=== PATIENT | female | born 1980 | race Caucasian/White ===

== ENCOUNTER 2018-06-06 07:13 | Inpatient (IN) | payer OTHER ==
[2018-06-06] VITALS (25 sets, daily range): BP systolic 97–132; BP diastolic 55–68
[~2018-06-06] VITALS: Ht 162.6 cm; Wt 74.4 kg
[~2018-06-06 07:13] MED LIST: ESC10 PO; FAMO20TA28 PO; FLUT16SP19 ENA; FLUT16SP19 NS; HUMALOG SUBQ; HUMNI SC; INSU100C12 SUBQ; INSU100V24 SUBQ; INSU100V26 SC; LANI SUBQ; LOR1; OMEP-125 PO; PANT40TA65 PO; PARO10OR3 PO; PER PO; PREN-85 PO; VENL-248 PO
--- NOTE | 2018-06-06 07:16 | ER Report ---
History and Physical Time Seen By MD: 07:17 HPI/ROS CHIEF COMPLAINT: Elevated blood sugar HISTORY OF PRESENT ILLNESS: Patient is a 37-year-old female who is an insulin- dependent diabetic. She is normally well controlled on insulin at home. She states yesterday she began feeling ill REVIEW OF SYSTEMS: Constitutional: Fevers and chills yesterday Eyes: No discharge. ENT: No sore throat. Cardiovascular: No chest pain, no palpitations. Respiratory: No cough, no shortness of breath. Gastrointestinal: No abdominal pain, no vomiting. Genitourinary: No hematuria. Musculoskeletal: No back pain. Skin: No rashes. Neurological: No headache. Allergies: Coded Allergies: penicillin G (Verified Allergy, Severe, HIVES, 04/16/16) Home Meds Reported Medications Insulin Human Lispro (Humalog) 100 U/Ml Vial, 2-10 UNIT SUBQ PRN PRN For GLU 150-200 Give 2 units For GLU 201-250 Give 4 units For GLU 251-300 Give 6 units For GLU 301-350 Give 8 units For GLU over 350 Give 10 units If GLU Under 50, td LANDON. May give juice if awake. If GLU over 400, give SS dose and td LANDON. If blood sugar is less than 50: td LANDON. May give juice if awake. If blood sugar greater than 400: give sliding scale dose and td LANDON. 08/23/11 Insulin Glargine (Lantus) 100 U/Ml Vial, UNIT SUBQ HS 08/23/11 Discontinued Reported Medications Famotidine (PEPCID) 20 Mg Tablet, 20 MG PO QDAY, #10 TAB 09/19/15 Omeprazole (OMEPRAZOLE) 20 Mg Capsule.dr, 1 CAP PO QDAY, CAP 08/06/15 Discontinued Scripts Pantoprazole Sodium (PANTOPRAZOLE SODIUM) 40 Mg Tablet.dr, 40 MG PO QDAY, #30 TAB.SR 1 Refill Prov:NICO TANNER MD 08/07/15 Past Medical/Surgical History Insulin-dependent diabetes, gastroesophageal reflux disease. Hx Smoking: Yes (1 PPD X 20 YEARS) Smoking Status: Current: Every Day Smoker Exposure to Second Hand Smoke?: Yes Hx Substance Use Disorder: Yes Hx Alcohol Use: Yes Constitutional Vital Sign - Last 24 Hours 06/06/18 07:13 Temp 97.5 Pulse 119 Resp 18 B/P (MAP) 155/83 Pulse Ox 95 O2 Delivery Room Air Physical Exam General/Constitutional: Patient is awake, alert, ill-appearing with deep respirations Head: Normocephalic and atraumatic. Eyes: Conjunctival clear, Pupils are equal and reactive to light. Extraocular muscles are intact and symmetrical. Sclera are clear and anicteric. Ears:External canals are clear. Tympanic membranes are clear with normal landmarks and light reflex. Nares: No rhinorrhea or bleeding. Turbinates are pink and moist. Oropharyngeal: Mucous membranes are dry. There is no pharyngeal erythema or exudate. There are no palatal petechiae. Uvula is midline and symmetrical. Neck: Supple, no adenopathy. Cardiovascular: Heart is tachycardic with regular rate without audible murmurs, rubs or gallops. Pulmonary: Lungs are clear to auscultation bilaterally. Kussmaul type respiration pattern noted Abdomen: Soft, nontender, no guarding or peritoneal signs. Extremities: No gross deformities, No peripheral cyanosis. Able to move all 4 extremities. Neuro: Alert and oriented X3, Skin: No rashes, skin is warm dry and well perfused. Medical Decision Making Data Points Result Diagram: 06/06/1880406/06/18804 Laboratory Hematology Test 06/06/18 00:00 06/06/18 07:37 06/06/18 07:47 06/06/18 08:05 Serum Alcohol < 10 mg/dl Influenza Virus Type A (PCR) Negative (NEGATIVE) Influenza Virus Type B (PCR) Negative (NEGATIVE) Urine Color Straw Urine Clarity Slightly-cloudy Urine pH 5.0 pH (4.8-9.5) Urine Specific [place] 1.015 Urine Protein 30 mg/dL (NEGATIVE) Urine Glucose (UA) 500 mg/dL (NEGATIVE) Urine Ketones 80 mg/dL (NEGATIVE) Urine Blood Small (NEGATIVE) Urine Nitrite Negative (NEGATIVE) Urine Bilirubin Negative (NEGATIVE) Urine Urobilinogen Negative mg/dL (0.2-1.9) Urine Leukocyte Esterase Negative (NEGATIVE) Urine RBC <1 /HPF (0-2/HPF) Urine WBC 1 /HPF (0-5/HPF) Urine Squamous Epithelial Cells Many /LPF (</=FEW) Urine Bacteria Few /HPF (NONE-FEW) Urine Hyaline Casts Few /LPF (NONE-FEW) Urine Mucus None /HPF (NONE-FEW) Red Blood Count 4.58 M/uL (4.17-5.56) Mean Corpuscular Volume 109.6 fL (80.0-96.0) Mean Corpuscular Hemoglobin 34.2 pg (26.0-33.0) Mean Corpuscular Hemoglobin Concent 31.3 g/dL (32.0-36.0) Red Cell Distribution Width 13.6 % (11.5-14.5) Mean Platelet Volume 8.7 fL (7.2-11.1) Neutrophils (%) (Auto) 84.8 % (39.4-72.5) Lymphocytes (%) (Auto) 9.8 % (17.6-49.6) Monocytes (%) (Auto) 5.0 % (4.1-12.4) Eosinophils (%) (Auto) 0.1 % (0.4-6.7) Basophils (%) (Auto) 0.3 % (0.3-1.4) Nucleated RBC Relative Count (auto) 0.0 /100WBC Neutrophils # (Auto) 18.4 K/uL (2.0-7.4) Lymphocytes # (Auto) 2.1 K/uL (1.3-3.6) Monocytes # (Auto) 1.1 K/uL (0.3-1.0) Eosinophils # (Auto) 0.0 K/uL (0.0-0.5) Basophils # (Auto) 0.1 K/uL (0.0-0.1) Nucleated RBC Absolute Count (auto) 0.01 K/uL Peripheral Blood Smear Yes Y/N Blood Gas Patient Temperature 97.9 DEGREES Venous Blood pH 6.90 (7.31-7.41) Venous Blood Partial Pressure CO2 < 25 mmHg Venous Blood Partial Pressure O2 63 mmHg Venous Blood HCO3 4 mmol/L Venous Blood Oxygen Saturation 73 % Venous Blood Base Excess -30 mmol/L Oxygen Liters/Minute Room air Sodium Level 134 mmol/L (137-145) Potassium Level 5.5 mmol/L (3.5-5.0) Chloride Level 96 mmol/L (98-107) Carbon Dioxide Level 5 mmol/L (22-31) Blood Urea Nitrogen 14 mg/dl (7-18) Creatinine 1.20 mg/dl (0.52-1.04) Glomerular Filtration Rate Calc 50.6 Random Glucose 484 mg/dl (75-110) Osmolality 315 mOSM/K (275-295) Calcium Level 8.7 mg/dl (8.4-10.2) Total Bilirubin 0.4 mg/dl (0.2-1.3) Aspartate Amino Transf (AST/SGOT) 40 U/L (0-35) Alanine Aminotransferase (ALT/SGPT) 25 U/L (0-56) Alkaline Phosphatase 95 U/L (0-126) Total Protein 7.8 g/dl (6.3-8.2) Albumin 4.8 g/dl (3.5-5.0) Human Chorionic Gonadotropin, Qual Negative (NEGATIVE) Acetone, Qualitative Small Chemistry Test 06/06/18 00:00 06/06/18 07:37 06/06/18 07:47 06/06/18 08:05 Serum Alcohol < 10 mg/dl Influenza Virus Type A (PCR) Negative (NEGATIVE) Influenza Virus Type B (PCR) Negative (NEGATIVE) Urine Color Straw Urine Clarity Slightly-cloudy Urine pH 5.0 pH (4.8-9.5) Urine Specific [place] 1.015 Urine Protein 30 mg/dL (NEGATIVE) Urine Glucose (UA) 500 mg/dL (NEGATIVE) Urine Ketones 80 mg/dL (NEGATIVE) Urine Blood Small (NEGATIVE) Urine Nitrite Negative (NEGATIVE) Urine Bilirubin Negative (NEGATIVE) Urine Urobilinogen Negative mg/dL (0.2-1.9) Urine Leukocyte Esterase Negative (NEGATIVE) Urine RBC <1 /HPF (0-2/HPF) Urine WBC 1 /HPF (0-5/HPF) Urine Squamous Epithelial Cells Many /LPF (</=FEW) Urine Bacteria Few /HPF (NONE-FEW) Urine Hyaline Casts Few /LPF (NONE-FEW) Urine Mucus None /HPF (NONE-FEW) White Blood Count 21.6 k/uL (4.5-11.0) Red Blood Count 4.58 M/uL (4.17-5.56) Hemoglobin 15.7 g/dL (12.0-16.0) Hematocrit 50.2 % (34.0-47.0) Mean Corpuscular Volume 109.6 fL (80.0-96.0) Mean Corpuscular Hemoglobin 34.2 pg (26.0-33.0) Mean Corpuscular Hemoglobin Concent 31.3 g/dL (32.0-36.0) Red Cell Distribution Width 13.6 % (11.5-14.5) Platelet Count 316 K/uL (150-450) Mean Platelet Volume 8.7 fL (7.2-11.1) Neutrophils (%) (Auto) 84.8 % (39.4-72.5) Lymphocytes (%) (Auto) 9.8 % (17.6-49.6) Monocytes (%) (Auto) 5.0 % (4.1-12.4) Eosinophils (%) (Auto) 0.1 % (0.4-6.7) Basophils (%) (Auto) 0.3 % (0.3-1.4) Nucleated RBC Relative Count (auto) 0.0 /100WBC Neutrophils # (Auto) 18.4 K/uL (2.0-7.4) Lymphocytes # (Auto) 2.1 K/uL (1.3-3.6) Monocytes # (Auto) 1.1 K/uL (0.3-1.0) Eosinophils # (Auto) 0.0 K/uL (0.0-0.5) Basophils # (Auto) 0.1 K/uL (0.0-0.1) Nucleated RBC Absolute Count (auto) 0.01 K/uL Peripheral Blood Smear Yes Y/N Blood Gas Patient Temperature 97.9 DEGREES Venous Blood pH 6.90 (7.31-7.41) Venous Blood Partial Pressure CO2 < 25 mmHg Venous Blood Partial Pressure O2 63 mmHg Venous Blood HCO3 4 mmol/L Venous Blood Oxygen Saturation 73 % Venous Blood Base Excess -30 mmol/L Oxygen Liters/Minute Room air Glomerular Filtration Rate Calc 50.6 Osmolality 315 mOSM/K (275-295) Calcium Level 8.7 mg/dl (8.4-10.2) Total Bilirubin 0.4 mg/dl (0.2-1.3) Aspartate Amino Transf (AST/SGOT) 40 U/L (0-35) Alanine Aminotransferase (ALT/SGPT) 25 U/L (0-56) Alkaline Phosphatase 95 U/L (0-126) Total Protein 7.8 g/dl (6.3-8.2) Albumin 4.8 g/dl (3.5-5.0) Human Chorionic Gonadotropin, Qual Negative (NEGATIVE) Acetone, Qualitative Small Toxicology Test 06/06/18 00:00 06/06/18 08:05 Serum Alcohol < 10 mg/dl Acetone, Qualitative Small Urinalysis Test 06/06/18 07:47 Urine Color Straw Urine Clarity Slightly-cloudy Urine pH 5.0 pH (4.8-9.5) Urine Specific [place] 1.015 Urine Protein 30 mg/dL (NEGATIVE) Urine Glucose (UA) 500 mg/dL (NEGATIVE) Urine Ketones 80 mg/dL (NEGATIVE) Urine Blood Small (NEGATIVE) Urine Nitrite Negative (NEGATIVE) Urine Bilirubin Negative (NEGATIVE) Urine Urobilinogen Negative mg/dL (0.2-1.9) Urine Leukocyte Esterase Negative (NEGATIVE) Urine RBC <1 /HPF (0-2/HPF) Urine WBC 1 /HPF (0-5/HPF) Urine Squamous Epithelial Cells Many /LPF (</=FEW) Urine Bacteria Few /HPF (NONE-FEW) Urine Hyaline Casts Few /LPF (NONE-FEW) Urine Mucus None /HPF (NONE-FEW) EKG/Imaging Monitor Interpretation: Sinus Tachycardia ED Course/Re-evaluation ED Course 06/06/2018 7:24:14 am patient with hyperglycemia. Blood sugar over 500. Plan at this time will be IV fluid bolus along with 10 units of regular insulin IV. We'll check CBC CMP serum acetone venous blood gas. We will also check influenza screen. 06/06/2018 8:51:29 am patient finishing her 2nd liter of IV fluids and is also received 10 units of regular insulin IV. We'll recheck blood sugar awaiting results of serum acetone. Patient is acidotic based on venous blood gas as well as her bicarbonate level of less than 5. Likely patient will require additional fluids perhaps an insulin drip and perhaps admission. Re-evaluation 06/06/2018 10:08:42 am accepted for admission to the ICU for diabetic ketoacidosis. Total critical care time excluding procedures was 30 minutes. Decision to Disposition Date: Jun 06, 2018 Decision to Disposition Time: 10:08 Depart Departure Latest Vital Signs Vital Signs Date Time Temp Pulse Resp B/P (MAP) Pulse Ox O2 Delivery O2 Flow Rate FiO2 06/06/18 07:13 97.5 119 18 155/83 95 Room Air Impression: Primary Impression: Diabetic ketoacidosis Condition: Improved Disposition: Admitted from ER (to ICU DR parra) Referrals: BERHANE LOONEY APPLICATION COORDINATOR (PCP) Problem Qualifiers Primary Impression: Diabetic ketoacidosis Diabetes mellitus type: type 1 Diabetes mellitus complication detail: without coma Qualified Codes: E10.10 - Type 1 diabetes mellitus with ketoacidosis without coma HENRIETTA BOB MD Jun 06, 2018 07:16
[2018-06-06] MEDS ORDERED: NS(*) 0.9% 1000 ML BAG 1,000 ML IV ONE ×2 (07:21→09:25)
[2018-06-06] MEDS ORDERED: INSU HUM REG 100 U/ML(ER ONLY) 10 ML VIAL IV ONE (07:25)
[2018-06-06] MEDS ORDERED: ONDANSETRON 4 MG/2 ML VIAL IVP ONE (07:30)
[2018-06-06] MEDS ORDERED: EMS NS 0.9%(*) 1000 ML BAG 1,000 ML IV ONE (07:45)
[2018-06-06 08:24] LABS: PLATELET COUNT, AUTOMATED 316 K/uL (150-450)
[2018-06-06] MEDS ORDERED: INS HUM REG* 100 U/ML(ER ONLY) 100 UNIT in NS(*) 0.9% 100 ML BAG 99 ML IV SCH (09:05)
[2018-06-06] MEDS ORDERED: INS HUM REG* 100 U/ML(ER ONLY) 100 UNIT in NS(*) 0.9% 100 ML BAG 99 ML IV ONE (09:10)
[2018-06-06] MEDS ORDERED: PANTOPRAZOLE SOD 40 MG IV VIAL IVP ONE (09:40)
[2018-06-06] MEDS ORDERED: LIDOCAINE 2% VISC SLN 15ML UDC PO ONE (09:50)
[2018-06-06] MEDS ORDERED: MAG HYD/AL HYD/SIMETH 30ML UDC PO ONE (09:50)
[2018-06-06] MEDS ORDERED: INSULIN HUM REG 100 UN/ML 3 ML 100 UNIT in NS(*) 0.9% 100 ML BAG 100 ML IV SCH (10:09)
[2018-06-06] MEDS ORDERED: NICOTINE INH SYSTEM 10 MG/INH INH PRN (10:10)
[2018-06-06] MEDS ORDERED: GI COCKTAIL 60 ML BTL PO PRN (10:10)
--- NOTE | 2018-06-06 10:24 | RADIOLOGY IMAGING REPORT ---
FACILITY: [facility] - [place] PATIENT NAME: Lois Mcnulyt : 1980 MR: [id number] V: [id number] EXAM DATE: ORDERING PHYSICIAN: KEKE JOSEPH TECHNOLOGIST: Location: [facility] - [place] Patient: Lois Mcnulty : 1980 Visit/Account:[id number] Date of Sevice: 06/06/2018 2 VIEWS CHEST INDICATION: Cold like symptoms COMPARISON: None available FINDINGS: Heart size within normal limits. Minimal reticular nodular prominence of the interstitium within the bases. There is no large alveolar consolidation, effusion or pneumothorax. No acute bony finding. IMPRESSION: 1. Mild interstitial changes suspicious for a viral bronchitis/atypical pneumonitis. Report Dictated By: Ar Day MD at 06/06/2018 10:19 AM Report E-Signed By: Ar Day MD at 06/06/2018 10:20 AM WSN:[id number]
[2018-06-06] MEDS ORDERED: KCL/NS* 20 MEQ/1000 ML PREMIX 1,000 ML IV SCH (10:30)
[2018-06-06] MEDS ORDERED: INS HUM REG* 100 U/ML(ER ONLY) 100 UNIT in NS(*) 0.9% 100 ML BAG 99 ML IV PRN ×2 (10:45→21:56)
--- NOTE | 2018-06-06 10:45 | History & Physical ---
History of Present Illness History of Present Illness 37yo female with T1DM who came to the ER for increased glucose, vomiting and deep breathing. She had coryza and neck "gland" enlargement for a week prior to admission, but those symptoms resolved. At 10:30am yesterday, she started having chills, malaise and nausea. By 5 or 6 pm, she had developed severe vomi ting and chills. During the night, she started having deep breathing. She doesn't remember what her blood sugars have been in the days leading up to this admission, but reported that she hadn't been taking good care of herself. However, she takes her blood sugars up to 8x/day. She doesn't report any sick contacts and no changes with her Lantus. She denies diarrhea, hematemesis, coffee ground emesis, dysuria, cough. In the ER, she was given 2 liters of IVF and 10 units of insulin IV. She r eports some overall improvement in how she is feeling. History Problems: (1) Depression Status: Chronic (2) Insulin dependent diabetes mellitus Status: Acute (3) History of section Home Meds Reported Medications Insulin Human Lispro (Humalog) 100 U/Ml Vial, 2-10 UNIT SUBQ PRN PRN For GLU 150-200 Give 2 units For GLU 201-250 Give 4 units For GLU 251-300 Give 6 units For GLU 301-350 Give 8 units For GLU over 350 Give 10 units If GLU Under 50, td LANDON. May give juice if awake. If GLU over 400, give SS dose and td LANDON. If blood sugar is less than 50: td LANDON. May give juice if awake. If blood sugar greater than 400: give sliding scale dose and td LANDON. 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 Smokes 1/2 ppd. Drinks 3-5 drinks per day, but denies tremor when stopping drinking. Hx Smoking: Yes (1 PPD X 20 YEARS) Smoking Status: Current: Every Day Smoker Exposure to Second Hand Smoke?: Yes Caffeine Intake: Coffee, Soda Caffeine/Cups Per Day: 3-4 CUPS DAILY Hx Alcohol Use: Yes Hx Substance Use Disorder: Yes Social Drug Use: Occasional Social Drugs: Marijuana Review of Systems All Systems Reviewed/Normal: Yes, Except as Noted Exam Vital Signs Vital Signs Date Time Temp Pulse Resp B/P (MAP) Pulse Ox O2 Delivery O2 Flow Rate FiO2 06/06/18 07:13 97.5 119 18 155/83 95 Room Air General Appearance: Alert, Awake, Other (moderate work of breathing) Neuro: No Gross deficits Eyes: PERRLA ENT: Moist Mucous Membranes Cardiovascular: Other (Tachy regular, no m/r/g) Respiratory: Clear to Auscultation GI: Abd Soft and Non-Tender : No CVA Tenderness Extremities: No Edema Integumentary: No Jaundice, No Cyanosis Medical Decision Making Data Points Result Diagram: 06/06/1880406/06/18804 Item Value Date Time Mean Corpuscular Volume 109.6 fL H 06/06/18 08 Neutrophils (%) (Auto) 84.8 % H 06/06/18804 Lymphocytes (%) (Auto) 9.8 % L 06/06/18804 Monocytes (%) (Auto) 5.0 % 06/06/18804 Eosinophils (%) (Auto) 0.1 % L 06/06/18804 Basophils (%) (Auto) 0.3 % 06/06/18804 Nucleated RBC Relative Count (auto) 0.0 /100WBC 06/06/18804 Venous Blood pH 6.90 L 06/06/18804 Venous Blood Partial Pressure CO2 < 25 mmHg 06/06/18804 Venous Blood Partial Pressure O2 63 mmHg 06/06/18804 Venous Blood HCO3 4 mmol/L 06/06/18804 Venous Blood Oxygen Saturation 73 % 06/06/18804 Venous Blood Base Excess -30 mmol/L 12/9/18 0805 Influenza Virus Type A (PCR) Negative 06/06/18 0737 Influenza Virus Type B (PCR) Negative 06/06/18 0737 Urine RBC <1 /HPF 06/06/18 0747 Urine WBC 1 /HPF 06/06/18 0747 Urine Squamous Epithelial Cells Many /LPF H 06/06/18 0747 Urine Bacteria Few /HPF 06/06/18 0747 Urine Hyaline Casts Few /LPF 06/06/18 0747 Urine Mucus None /HPF 06/06/18 0747 Urine Blood Small 06/06/18 0747 Urine Ketones 80 mg/dL H 06/06/18 0747 Urine Glucose (UA) 500 mg/dL 06/06/18 0747 Urine Protein 30 mg/dL 06/06/18 0747 Urine Specific [place] 1.015 06/06/18 0747 Serum Alcohol < 10 mg/dl 06/06/18 0000 Acetone, Qualitative Small 06/06/18 0805 Aspartate Amino Transf (AST/SGOT) 40 U/L H 06/06/18 0805 Alanine Aminotransferase (ALT/SGPT) 25 U/L 06/06/18 0805 Alkaline Phosphatase 95 U/L 06/06/18 0805 Total Protein 7.8 g/dl 06/06/18 0805 Albumin 4.8 g/dl 06/06/18 0805 Human Chorionic Gonadotropin, Qual Negative 06/06/18 0805 Osmolality 315 mOSM/K H 06/06/18 0805 Total Bilirubin 0.4 mg/dl 06/06/18 0805 EKG / Imaging Imaging CXR - 1. Mild interstitial changes suspicious for a viral bronchitis/atypical pneumonitis. Assessment and Plan Problems: (1) Diabetic ketoacidosis Status: Acute Assessment & Plan: She presented with about 20 hours of nausea, vomiting, chills and tiredness. Her AG is 33 and glucose was 484. She has received 2 liters of IVF in the ER and is getting a 3rd. She was given 10 units of IV insulin and has beens started on the drip by weight. BMP/Mg/HgA1c/Lactate/Blood cultures at Noon. The etiology of the DKA sounds like a viral gastritis vs food born illness. CXR couldn't rule out a pneumonitis. She denies a cough or coryza, currently. WBC is high, but afebrile. BMP/Mg/HgA1c/Lactate/Blood cultures at noon. Will hold off on antibiotics unless she has worrisome symptoms or signs. (2) GERD (gastroesophageal reflux disease) Status: Chronic Assessment & Plan: She take omeprazole prn. Will give IV pantoprazole because she his having symptoms after the frequent vomiting. She is also getting a GI cocktail, so will see how it helps her symptoms. (3) Depression Status: Chronic Assessment & Plan: She is chronically on Effexor 75mg. Will hold for now. (4) Elevated MCV Status: Chronic Assessment & Plan: She reports drinking 3-5 alcoholic beverages a day, but denies a tremor if she doesn't drink. She doesn't appear to be in acute withdrawal, but will follow closely. Will check B12 and Folate. Copies to: BERHANE LOONEY ; Venous Thromboembolism Antithrombotics Is Pt On Any Antithrombotics?: No Exam Sepsis Risk: No Definite Risk Problem Qualifiers (1) Diabetic ketoacidosis: Diabetes mellitus type: type 1 Diabetes mellitus complication detail: without coma Qualified Codes: E10.10 - Type 1 diabetes mellitus with ketoacidosis without coma KEKE JOSEPH MD Jun 06, 2018 10:45
[2018-06-06] MEDS: KCL/D1/2NS 20 MEQ 1000 ML 1,000 ML IV PRN ×2 (11:09→20:47)
[2018-06-06] MEDS ORDERED: VENL75CA58 PO (11:29)
[2018-06-06] MEDS ORDERED: LANI SUBQ (11:30)
[2018-06-06] MEDS ORDERED: DIAZEPAM 10 MG TAB PO PRN (14:00)
[2018-06-06] MEDS: DIAZEPAM 10 MG TAB PO PRN ×3 (14:45→20:24)
[2018-06-06] MEDS ORDERED: CELECOXIB 200 MG CAP PO PRN (18:10)
[2018-06-06] MEDS ORDERED: ACETAMINOPHEN 500 MG TAB PO PRN (18:10)
--- NOTE | 2018-06-06 18:16 | Miscellaneous Provider Note ---
Miscellaneous Provider Note Note Still with a sinus tach and now with a low grade fever and a cough. Item Value Date Time Sodium Level 135 mmol/L L 06/06/18 1600 Potassium Level 4.8 mmol/L 06/06/18 1600 Chloride Level 108 mmol/L H 06/06/18 1600 Carbon Dioxide Level 10 mmol/L *L 06/06/18 1600 Blood Urea Nitrogen 10 mg/dl 06/06/18 1600 Creatinine 0.80 mg/dl 06/06/18 1600 Glomerular Filtration Rate Calc > 60.0 06/06/18 1600 Whole Blood Glucose 184 mg/DL H 06/06/18 1712 Random Glucose 192 mg/dl H 06/06/18 1600 Whole Blood Glucose 192 mg/DL H 06/06/18 1523 Whole Blood Glucose 186 mg/DL H 06/06/18 1410 Whole Blood Glucose 195 mg/DL H 06/06/18 1315 Sodium Level 135 mmol/L L 06/06/18 1222 Potassium Level 5.5 mmol/L H 06/06/18 1222 Chloride Level 107 mmol/L 06/06/18 1222 Carbon Dioxide Level 6 mmol/L *L 06/06/18 1222 Blood Urea Nitrogen 12 mg/dl 06/06/18 1222 Creatinine 0.90 mg/dl 06/06/18 1222 Glomerular Filtration Rate Calc > 60.0 06/06/18 1222 Random Glucose 190 mg/dl H 06/06/18 1222 Lactate 1.6 mmol/L 06/06/18 1208 Because of the fever, cough, CXR findings and leukocytosis; will start ceftriaxone and azithromycin. Repeat CXR in the morning. Family reporting that the patient drinks up to 10 drinks/day. Last drink was 2 night ago. CIWA scoring has begun. Using oral Valium to cover. KEKE JOSEPH MD Jun 06, 2018 18:16
[2018-06-06] MEDS ORDERED: cefTRIAXone 1 GM VIAL IVP SCH (19:00)
[2018-06-06] MEDS ORDERED: NS(*) 0.9% 250 ML BAG 250 ML ONE (19:08)
[2018-06-06] MEDS: VENLAFAXINE REG 75 MG TAB PO SCH (19:12)
[2018-06-06] MEDS ORDERED: PROMETHAZINE 25 MG/ML 1 ML AMP IVP PRN (19:50)
[2018-06-06] MEDS ORDERED: AZITHROMYCIN(*) 500 MG 500 MG in NS(*) 0.9% 250 ML BAG 250 ML IVPB SCH (20:00)
[2018-06-06] MEDS ORDERED: ONDANSETRON 4 MG/2 ML VIAL IVP PRN (22:00)
[2018-06-07] VITALS (31 sets, daily range): BP systolic 93–132; BP diastolic 57–90
[2018-06-07 06:00] LABS: PLATELET COUNT, AUTOMATED 192 K/uL (150-450)
--- NOTE | 2018-06-07 06:29 | RADIOLOGY IMAGING REPORT ---
FACILITY: [facility] - [place] PATIENT NAME: Lois Mcnulty : 1980 MR: [id number] V: [id number] EXAM DATE: ORDERING PHYSICIAN: KEKE JOSEPH TECHNOLOGIST: Location: [facility] [place] Patient: Lois Mcnulty : 1980 Visit/Account:[id number] Date of Sevice: 06/07/2018 PORTABLE CHEST: Indication: Cough and fever. Technique: A single frontal film was obtained. Comparison: 06/06/2018 Skeletal and soft tissue structures: Intact and unremarkable. Heart and mediastinum: Within normal limits. Lung elizabeth: Well-expanded. No focal opacity or consolidation is identified. Pleural spaces: Unremarkable. Impression: No acute process or significant change. Report Dictated By: Mumtaz Rosario MD at 06/07/2018 6:21 AM Report E-Signed By: Mumtaz Rosario MD at 06/07/2018 6:25 AM [id number]
[2018-06-07] MEDS: VENLAFAXINE REG 75 MG TAB PO SCH (08:43)
--- NOTE | 2018-06-07 08:44 | Hospitalist Progress Note ---
Subjective Progress Notes Subjective This patient was admitted for DKA. She had no acute issues overnight. Patient Complains of: Cardiovascular: No: Chest Pain Respiratory: No: Shortness of Breath Physical Exam Vital Signs Date Time Temp Pulse Resp B/P (MAP) Pulse Ox O2 Delivery O2 Flow Rate FiO2 06/07/18 06:30 91 15 100/65 (77) 95 Room Air 06/07/18 05:30 97.9 Intake and Output 06/07/18 07:00 Intake Total 6214.4 ml Output Total 1700 ml Balance 4514.4 ml Intake Oral 1050 ml IV Total 5164.4 ml Output Urine Total 1700 ml Cardiovascular: Regular Rate and Rhythm Respiratory: Clear to Auscultation Result Diagram: 06/07/1855506/07/18555 Monitor Interpretation: Sinus Tachycardia Assessment and Plan Problems: (1) Diabetic ketoacidosis Status: Acute Assessment & Plan: She did have an elevated glucose and ketoacidosis. She was placed on an insulin infusion and treated with IV fluids. Her glucose has improved and her acidosis has resolved. We have placed her back on her usual dose of Lantus and will advance her diet. She may be ready for discharge later today. (2) GERD (gastroesophageal reflux disease) Status: Chronic Assessment & Plan: She is on chronic treatment with Prilosec. (3) Depression Status: Chronic Assessment & Plan: She is chronically on Effexor 75mg. (4) Elevated MCV Status: Chronic Assessment & Plan: She has been started on thiamine. (5) Bronchitis Assessment & Plan: Her initial chest x-ray showed findings consistent with bronchitis. She was started on empiric treatment with ceftriaxone and azithromycin. Her x-ray this morning is clear. Exam Sepsis Risk: Sepsis Risk Problem Qualifiers (1) Diabetic ketoacidosis: Diabetes mellitus type: type 1 Diabetes mellitus complication detail: without coma Qualified Codes: E10.10 - Type 1 diabetes mellitus with ketoacidosis without coma STEPHY CHACKO DO Jun 07, 2018 08:44
[2018-06-07] MEDS ORDERED: PANTOPRAZOLE SOD 40 MG IV VIAL IVP SCH (09:00)
[2018-06-07] MEDS ORDERED: INSULIN GLARGINE 100 U/ML 3 ML PEN SUBQ SCH (09:00)
[2018-06-07] MEDS ORDERED: ENOXAPARIN 40 MG/0.4ML SYR SC SCH (09:00)
[2018-06-07] MEDS ORDERED: THIAMINE HCL 100 MG TAB PO SCH (09:00)
--- NOTE | 2018-06-07 09:54 | Antimicrobial Stewardship ---
Antimicrobial Stewardship Empiricly appropriate: Yes Significant PMH: Yes (DM1) Support empiric regimen: Yes Reviewed for Drug Interaction: Yes Monitored for Toxicities: Yes Clinically stable/improving: Yes IV to PO Opportunity: Yes Comment Once able to eat and drink, transition to oral Determine cumulative duration: Today is day 2 Determine standard duration: 5 days Comment 37 yo F presented with DKA, elevated WBC, reported N/V prior to admission. Chest xray showed bronchitis. Continue ceftriaxone + azithromycin. Plan to switch to oral today, continue azithromycin for a total of 5 days of therapy. Francisca Castellano, PharmD, BCOP FRANCISCA CASTELLANO Jun 07, 2018 09:54
[2018-06-07] MEDS: INSULIN HUM LISPRO 100 UN/ML 3 ML VIAL SUBQ PRN ×2 (12:20→17:21)
[2018-06-07] MEDS ORDERED: IBUP-56 PO (13:22)
[2018-06-07] MEDS ORDERED: MULT-1335 PO (13:22)
[2018-06-07] MEDS ORDERED: mirena (13:22)
--- NOTE | 2018-06-07 13:38 | Medical Nutrition Therapy ---
Nutrition Anthropometrics Height (Inches): 64.00 Height (Calculated Centimeters: 162.898423 Weight (Pounds): 164 Weight (Calculated Kilograms): 74.389 Grayson Nutrition Score: Adequate Grayson Nutrition Risk Score: 20 Dietary Referral Nutrition Risk Factors: Nutrition Risk Comment: Physical Findings Physical Appearance: Overweight BMI 25-29 Skin Appearance Skin Appearance: Edema Edema Location Modifier: Edema Location: Type of Edema: Degree of Edema: Gastrointestinal Symptoms GI Symtoms: Nausea Tube Present: Bowel Sounds: Recent Bowel Pattern: Stool Characteristics: Nutrition/Food History goes to [facility] for diabetes Nutritional Diagnosis Nutritional Risk Acuity 2: Blood Glucose > 300mg/dl, DKA Nutritional Risk Acuity 3: Alcohol abuse Past Medical History: T1DM, GERD, depression Nutritional Acuity: 2-Moderate Nutrition Diagnosis: Inappropriate Carb Intake Nutrition Etiology: Physiological Causes Nutrition Problem/Etiology/Sym: r/t Dx DKA AEB admitting BG of 484 Energy Requirement: 1850 (M- StJ) Protein Requirement: 75 (1gm/kg) Fluid Requirement: 2200 (30ml/kg) Diet Type: Diabetic Nutrition Intervention: Cont diet as ordered, Encourage intake Nutrition Monitoring & Eval Nutrition Goals: Eat 75-100% Meal RD Patient Assessment Time: 30 minutes Patient Nutrition Acuity: 2-Moderate Follow Up Date: Jun 12, 2018 Nutritional Comment: 06/07 Pt admitted with DKA and BG 484 following viral gastritis incident. Pt cont nausea. BG cont elevated 118-296. Diet advanced to diabetic but no intake reported at this time. Pt recieves diabetes education at the [facility]. Pt has an insulin pump but states does not use. Mother reportes 8-10 beers nightly. alb 2.9. BMI is in overwt range. Will cont to monitor and encourage intake. MYRNA DOHERTY Jun 07, 2018 10:59
[2018-06-07] MEDS ORDERED: SYRI-1525 MC (17:30)
--- NOTE | 2018-06-07 17:32 | Hospitalist Depart ---
Discharge Summary Reason for Hosp/Final Diag: (1) Diabetic ketoacidosis Status: Acute Hospital Course & Plan: She did have an elevated glucose and ketoacidosis. She was placed on an insulin infusion and treated with IV fluids. Her glucose has improved and her acidosis has resolved. We have placed her back on her usual dose of Lantus and advanced her diet. She will resume her home insulin regime. (2) GERD (gastroesophageal reflux disease) Status: Chronic Hospital Course & Plan: She is on chronic treatment with Prilosec. (3) Depression Status: Chronic Hospital Course & Plan: She is chronically on Effexor 75mg. (4) Elevated MCV Status: Chronic Hospital Course & Plan: She was treated with thiamine. (5) Bronchitis Hospital Course & Plan: Her initial chest x-ray showed findings consistent with bronchitis. She was started on empiric treatment with ceftriaxone and az ithromycin. Her x-ray this morning is clear. Departure Latest Vital Signs Vital Signs 06/07/18 06/07/18 15:00 15:05 Temp 98.1 Pulse 92 Resp 13 B/P (MAP) 124/81 (95) Pulse Ox 94 O2 Delivery Room Air Weight (Pounds): 164 Result Diagram: 06/07/1855506/07/18555 Condition: Improved Discharge: Home, Self Care Follow-Up Labs: Finger Sticks Discharge Instructions Home Meds Active Scripts Syringe & Needle,Insulin,1 Ml (INSULIN SYRINGE) 1 Each Disp.syrin, EACH ACHS, #30 1 Refill Prov:STEPHY CHACKO 06/07/18 Reported Medications [mirena] No Conflict Check Pt. says she has a Mirena IUD. 06/07/18 Ibuprofen (IBUPROFEN) 200 Mg Tablet, 2 TAB PO 2XW, TAB 06/07/18 Multivitamin With Minerals (MULTIPLE VITAMIN) 1 Each Tablet, 1 EACH PO QDAY, TAB 06/07/18 Insulin Glargine (LANTUS) 100 Unit/Ml Soln, 15 UNIT SUBQ AM, ML 06/06/18 Venlafaxine Hcl (EFFEXOR XR) 75 Mg Cap.er.24h, 75 MG PO QDAY 06/06/18 Insulin Human Lispro (Humalog) 100 U/Ml Vial, 2-10 UNIT SUBQ PRN PRN For GLU 150-200 Give 2 units For GLU 201-250 Give 4 units For GLU 251-300 Give 6 units For GLU 301-350 Give 8 units For GLU over 350 Give 10 units If GLU Under 50, td LANDON. May give juice if awake. If GLU over 400, give SS dose and td LANDON. If blood sugar is less than 50: td LANDON. May give juice if awake. If blood sugar greater than 400: give sliding scale dose and td LANDON. 08/23/11 Insulin Glargine (Lantus) 100 U/Ml Vial, 15 UNIT SUBQ HS 08/23/11 Discontinued Reported Medications Famotidine (PEPCID) 20 Mg Tablet, 20 MG PO QDAY, #10 TAB 09/19/15 Omeprazole (OMEPRAZOLE) 20 Mg Capsule., 1 CAP PO QDAY, CAP 08/06/15 Discontinued Scripts Pantoprazole Sodium (PANTOPRAZOLE SODIUM) 40 Mg Tablet.dr, 40 MG PO QDAY, #30 TAB.SR 1 Refill Prov:NICO TANNER MD 08/07/15 Diet: Diabetic Activity: As Tolerated Copies to: BERHANE LOONEYP ; Venous Thromboembolism Antithrombotics Is Pt On Any Antithrombotics?: No Problem Qualifiers (1) Diabetic ketoacidosis: Diabetes mellitus type: type 1 Diabetes mellitus complication detail: without coma Qualified Codes: E10.10 - Type 1 diabetes mellitus with ketoacidosis without coma STEPHY CHACKO DO Jun 07, 2018 17:32
[2018-06-07] MEDS ORDERED: cefTRIAXone 1 GM VIAL IVP SCH (18:00)
[2018-06-08] MEDS ORDERED: INFLUENZA VIRUS VAC 0.5ML SYR IM ONLY ONE (09:00)
== END 2018-06-07 18:25 | disposition home or self-care (01) | DRG 638 ==
LOC: ER 07:22 → ICU 09:31
PROVIDERS: ADMIT Internal Medicine; ATTEND Internal Medicine
DX: E10.10 Type 1 diabetes mellitus with ketoacidosis without coma (principal); F10.230 Alcohol dependence with withdrawal, uncomplicated; K21.9 Gastro-esophageal reflux disease without esophagitis; F32.9 Major depressive disorder, single episode, unspecified; J40 Bronchitis, not specified as acute or chronic; F17.210 Nicotine dependence, cigarettes, uncomplicated; Z79.4 Long term (current) use of insulin; Y90.0 Blood alcohol level of less than 20 mg/100 ml
CPT/HCPCS: 36415; 36416; 71045; 71046; 80320; 81001; 82009; 82040; 82247; 82310; 82374; 82435; 82565; 82607; 82746; 82803; 82947; 82948; 83036; 83605; 83735; 83930; 84075; 84132; 84155; 84295; 84450; 84460; 84520; 84703; 85025; 87040; 87502; 96361; 96365; 96375; 99285; C9113; J0456; J0696; J1650; J1815; J2405; J2550; J3480; J7030; J7050

== ENCOUNTER 2018-08-31 20:52 | Emergency (ER) | payer OTHER ==
[~2018-08-31 20:52] MED LIST changes: +IBUP-56 PO; +MULT-1335 PO; +SYRI-1525 MC; +VENL75CA58 PO; +mirena
[2018-08-31 21:25] VITALS: BP 126/92
[2018-08-31] MEDS ORDERED: VENL25TA3 PO (21:32)
[2018-08-31 22:25] LABS: PLATELET COUNT, AUTOMATED 239 K/uL (150-450)
--- NOTE | 2018-08-31 22:46 | ER Report ---
History and Physical Time Seen By MD: 21:30 Hx. of Stated Complaint: PT DRINKS ALOT. PT ALSO HAS SI. PT WANTS HELP AND WANTS TO CHANGE. HPI/ROS CHIEF COMPLAINT: Depression, suicidal ideations, alcohol abuse HISTORY OF PRESENT ILLNESS: Patient is a 37-year-old female here with complaints of the above. Patient reportedly drank several beers, vodka and reportedly called her mother, tearful reporting that she had thoughts of wanting to end her life. Patient is visibly intoxicated, reporting that she frequently drinks si milar amounts of alcohol and oftentimes has thoughts of ending her life by driving the car into a pole. Patient denies taking Tylenol or aspirin for attempts at self-harm. She does have a history of prior thoughts of suicidal attempts. Patient does take fluoxetine for depression. She does admit to using marijuana at times. She has been admitted to the inpatient setting for treatment of depression and suicidal ideations in the past. REVIEW OF SYSTEMS: Constitutional: No fever, no chills. Eyes: No discharge. ENT: No sore throat. Cardiovascular: No chest pain, no palpitations. Respiratory: No cough, no shortness of breath. Gastrointestinal: No abdominal pain, no vomiting. Genitourinary: No hematuria. Musculoskeletal: No back pain. Skin: No rashes. Neurological: No headache.+ Intoxicated, slurring words Psychiatric: Tearful, depressed, suicidal ideations Allergies: Coded Allergies: penicillin G (Verified Allergy, Severe, HIVES, 08/31/18) Home Meds Active Scripts Syringe & Needle,Insulin,1 Ml (INSULIN SYRINGE) 1 Each Disp.syrin, EACH ACHS, #30 1 Refill Prov:STEPHY CHACKO DO 06/07/18 Reported Medications Venlafaxine Hcl (VENLAFAXINE HCL) 25 Mg Tablet, 25 MG PO QDAY 08/31/18 [mirena] No Conflict Check Pt. says she has a Mirena IUD. 06/07/18 Insulin Glargine (LANTUS) 100 Unit/Ml Soln, 15 UNIT SUBQ AM, ML 06/06/18 Insulin Human Lispro (Humalog) 100 U/Ml Vial, 2-10 UNIT SUBQ PRN PRN For GLU 150-200 Give 2 units For GLU 201-250 Give 4 units For GLU 251-300 Give 6 units For GLU 301-350 Give 8 units For GLU over 350 Give 10 units If GLU Under 50, td LANDON. May give juice if awake. If GLU over 400, give SS dose and td LANDON. If blood sugar is less than 50: td LANDON. May give juice if awake. If blood sugar greater than 400: give sliding scale dose and td LANDON. 08/23/11 Insulin Glargine (Lantus) 100 U/Ml Vial, 15 UNIT SUBQ HS 08/23/11 Discontinued Reported Medications Ibuprofen (IBUPROFEN) 200 Mg Tablet, 2 TAB PO 2XW, TAB 06/07/18 Multivitamin With Minerals (MULTIPLE VITAMIN) 1 Each Tablet, 1 EACH PO QDAY, TAB 06/07/18 Venlafaxine Hcl (EFFEXOR XR) 75 Mg Cap.er.24h, 75 MG PO QDAY 06/06/18 Hx Smoking: Yes (1 PPD X 20 YEARS) Smoking Status: Current: Every Day Smoker Exposure to Second Hand Smoke?: Yes Hx Substance Use Disorder: Yes Hx Alcohol Use: Yes Constitutional Vital Sign - Last 24 Hours 08/31/18 08/31/18 08/31/18 08/31/18 21:25 21:25 21:37 21:52 Temp 98.6 Pulse 107 105 107 Resp 18 B/P (MAP) 126/92 (103) 126/92 Pulse Ox 94 92 91 O2 Delivery Room Air 08/31/18 08/31/18 08/31/18 08/31/18 21:57 22:12 22:27 23:12 Pulse 103 101 96 100 Pulse Ox 93 91 94 92 08/31/18 23:17 Pulse Ox 93 Intake and Output 08/31/18 08/31/18 09/01/18 14:59 22:59 06:59 Intake Total 1000 ml Balance 1000 ml Physical Exam General Appearance: The patient is alert, has no immediate need for airway protection and no signs of toxicity. Tearful, intoxicated Eyes: Pupils equal and round no pallor or injection. ENT, Mouth: Mucous membranes are moist. Respiratory: There are no retractions, lungs are clear to auscultation. Cardiovascular: Regular rate and rhythm. Gastrointestinal: Abdomen is soft and non tender, no masses, bowel sounds normal. Neurological: Slurring words, intoxicated appearing, moving all extremities without focal neurological findings Skin: Warm and dry, no rashes. Musculoskeletal: Neck is supple non tender. Extremities are nontender, nonswollen and have full range of motion. Psychiatric: Tearful, intoxicated DIFFERENTIAL DIAGNOSIS: After history and physical exam differential diagnosis was considered for depression, suicidal ideations, anxious, substance intoxicat ion Medical Decision Making Data Points Result Diagram: 08/31/18220908/31/185 Laboratory Hematology Test 08/31/18 21:22 08/31/18 21:45 08/31/18 22:10 Urine Color Yellow Urine Clarity Cloudy Urine pH 5.0 pH (4.8-9.5) Urine Specific [place] 1.006 Urine Protein Negative mg/dL (NEGATIVE) Urine Glucose (UA) 500 mg/dL (NEGATIVE) Urine Ketones Trace mg/dL (NEGATIVE) Urine Blood Negative (NEGATIVE) Urine Nitrite Negative (NEGATIVE) Urine Bilirubin Negative (NEGATIVE) Urine Urobilinogen Negative mg/dL (0.2-1.9) Urine Leukocyte Esterase Small (NEGATIVE) Urine RBC None /HPF (0-2/HPF) Urine WBC 5 /HPF (0-5/HPF) Urine Squamous Epithelial Cells Many /LPF (</=FEW) Urine Bacteria Few /HPF (NONE-FEW) Urine Mucus None /HPF (NONE-FEW) Urine HCG, Qualitative Negative (NEGATIVE) Urine Opiates Screen Negative Urine Barbiturates Screen Negative Ur Tricyclic Antidepressants Screen Negative Urine Phencyclidine Screen Negative Urine Amphetamines Screen Negative Urine Benzodiazepines Screen Negative Urine Cocaine Screen Negative Urine Cannabinoids Screen Negative Sodium Level 129 mmol/L (137-145) Potassium Level 4.1 mmol/L (3.5-5.0) Chloride Level 95 mmol/L (98-107) Carbon Dioxide Level 17 mmol/L (22-31) Blood Urea Nitrogen 7 mg/dl (7-18) Creatinine 0.60 mg/dl (0.52-1.04) Glomerular Filtration Rate Calc > 60.0 Random Glucose 289 mg/dl (75-110) Calcium Level 9.1 mg/dl (8.4-10.2) Magnesium Level 1.6 mg/dl (1.7-2.2) Total Bilirubin 0.5 mg/dl (0.2-1.3) Aspartate Amino Transf (AST/SGOT) 26 U/L (0-35) Alanine Aminotransferase (ALT/SGPT) 32 U/L (0-56) Alkaline Phosphatase 67 U/L (0-126) Total Protein 6.7 g/dl (6.3-8.2) Albumin 4.5 g/dl (3.5-5.0) Thyroid Stimulating Hormone (TSH) 3.63 uIU/ml (0.46-4.68) Salicylates Level < 10 mg/L Salicylate Last Dose Date unknown Acetaminophen Level < 10 ug/ml Serum Alcohol 256 mg/dl Red Blood Count 4.42 M/uL (4.17-5.56) Mean Corpuscular Volume 101.1 fL (80.0-96.0) Mean Corpuscular Hemoglobin 35.4 pg (26.0-33.0) Mean Corpuscular Hemoglobin Concent 35.0 g/dL (32.0-36.0) Red Cell Distribution Width 13.3 % (11.5-14.5) Mean Platelet Volume 8.1 fL (7.2-11.1) Neutrophils (%) (Auto) 71.9 % (39.4-72.5) Lymphocytes (%) (Auto) 20.0 % (17.6-49.6) Monocytes (%) (Auto) 6.5 % (4.1-12.4) Eosinophils (%) (Auto) 1.5 % (0.4-6.7) Basophils (%) (Auto) 0.1 % (0.3-1.4) Nucleated RBC Relative Count (auto) 0.1 /100WBC Neutrophils # (Auto) 7.4 K/uL (2.0-7.4) Lymphocytes # (Auto) 2.1 K/uL (1.3-3.6) Monocytes # (Auto) 0.7 K/uL (0.3-1.0) Eosinophils # (Auto) 0.2 K/uL (0.0-0.5) Basophils # (Auto) 0.0 K/uL (0.0-0.1) Nucleated RBC Absolute Count (auto) 0.01 K/uL Chemistry Test 08/31/18 21:22 08/31/18 21:45 08/31/18 22:10 Urine Color Yellow Urine Clarity Cloudy Urine pH 5.0 pH (4.8-9.5) Urine Specific [place] 1.006 Urine Protein Negative mg/dL (NEGATIVE) Urine Glucose (UA) 500 mg/dL (NEGATIVE) Urine Ketones Trace mg/dL (NEGATIVE) Urine Blood Negative (NEGATIVE) Urine Nitrite Negative (NEGATIVE) Urine Bilirubin Negative (NEGATIVE) Urine Urobilinogen Negative mg/dL (0.2-1.9) Urine Leukocyte Esterase Small (NEGATIVE) Urine RBC None /HPF (0-2/HPF) Urine WBC 5 /HPF (0-5/HPF) Urine Squamous Epithelial Cells Many /LPF (</=FEW) Urine Bacteria Few /HPF (NONE-FEW) Urine Mucus None /HPF (NONE-FEW) Urine HCG, Qualitative Negative (NEGATIVE) Urine Opiates Screen Negative Urine Barbiturates Screen Negative Ur Tricyclic Antidepressants Screen Negative Urine Phencyclidine Screen Negative Urine Amphetamines Screen Negative Urine Benzodiazepines Screen Negative Urine Cocaine Screen Negative Urine Cannabinoids Screen Negative Glomerular Filtration Rate Calc > 60.0 Calcium Level 9.1 mg/dl (8.4-10.2) Magnesium Level 1.6 mg/dl (1.7-2.2) Total Bilirubin 0.5 mg/dl (0.2-1.3) Aspartate Amino Transf (AST/SGOT) 26 U/L (0-35) Alanine Aminotransferase (ALT/SGPT) 32 U/L (0-56) Alkaline Phosphatase 67 U/L (0-126) Total Protein 6.7 g/dl (6.3-8.2) Albumin 4.5 g/dl (3.5-5.0) Thyroid Stimulating Hormone (TSH) 3.63 uIU/ml (0.46-4.68) Salicylates Level < 10 mg/L Salicylate Last Dose Date unknown Acetaminophen Level < 10 ug/ml Serum Alcohol 256 mg/dl White Blood Count 10.3 k/uL (4.5-11.0) Red Blood Count 4.42 M/uL (4.17-5.56) Hemoglobin 15.7 g/dL (12.0-16.0) Hematocrit 44.7 % (34.0-47.0) Mean Corpuscular Volume 101.1 fL (80.0-96.0) Mean Corpuscular Hemoglobin 35.4 pg (26.0-33.0) Mean Corpuscular Hemoglobin Concent 35.0 g/dL (32.0-36.0) Red Cell Distribution Width 13.3 % (11.5-14.5) Platelet Count 239 K/uL (150-450) Mean Platelet Volume 8.1 fL (7.2-11.1) Neutrophils (%) (Auto) 71.9 % (39.4-72.5) Lymphocytes (%) (Auto) 20.0 % (17.6-49.6) Monocytes (%) (Auto) 6.5 % (4.1-12.4) Eosinophils (%) (Auto) 1.5 % (0.4-6.7) Basophils (%) (Auto) 0.1 % (0.3-1.4) Nucleated RBC Relative Count (auto) 0.1 /100WBC Neutrophils # (Auto) 7.4 K/uL (2.0-7.4) Lymphocytes # (Auto) 2.1 K/uL (1.3-3.6) Monocytes # (Auto) 0.7 K/uL (0.3-1.0) Eosinophils # (Auto) 0.2 K/uL (0.0-0.5) Basophils # (Auto) 0.0 K/uL (0.0-0.1) Nucleated RBC Absolute Count (auto) 0.01 K/uL Toxicology Test 08/31/18 21:22 08/31/18 21:45 Urine Opiates Screen Negative Urine Barbiturates Screen Negative Ur Tricyclic Antidepressants Screen Negative Urine Phencyclidine Screen Negative Urine Amphetamines Screen Negative Urine Benzodiazepines Screen Negative Urine Cocaine Screen Negative Urine Cannabinoids Screen Negative Salicylates Level < 10 mg/L Salicylate Last Dose Date unknown Acetaminophen Level < 10 ug/ml Serum Alcohol 256 mg/dl Urinalysis Test 08/31/18 21:22 Urine Color Yellow Urine Clarity Cloudy Urine pH 5.0 pH (4.8-9.5) Urine Specific [place] 1.006 Urine Protein Negative mg/dL (NEGATIVE) Urine Glucose (UA) 500 mg/dL (NEGATIVE) Urine Ketones Trace mg/dL (NEGATIVE) Urine Blood Negative (NEGATIVE) Urine Nitrite Negative (NEGATIVE) Urine Bilirubin Negative (NEGATIVE) Urine Urobilinogen Negative mg/dL (0.2-1.9) Urine Leukocyte Esterase Small (NEGATIVE) Urine RBC None /HPF (0-2/HPF) Urine WBC 5 /HPF (0-5/HPF) Urine Squamous Epithelial Cells Many /LPF (</=FEW) Urine Bacteria Few /HPF (NONE-FEW) Urine Mucus None /HPF (NONE-FEW) Urine HCG, Qualitative Negative (NEGATIVE) ED Course/Re-evaluation ED Course Patient is a 37-year-old female here with complaints of suicidal ideations, significant alcohol consumption. Patient reports that she has been intermittently thinking about crashing her car into a tree or a pole. I discussed the patient with Dr. Mak who accepted the patient to behavioral health services for further treatment and care. Patient signed in voluntarily. Patient was hemodynamically stable at time of admission. Patient was given a banana bag prior to transfer to behavioral services. Decision to Disposition Date: Sep 01, 2018 Decision to Disposition Time: 00:00 Depart Departure Latest Vital Signs Vital Signs Date Time Temp Pulse Resp B/P (MAP) Pulse Ox O2 Delivery O2 Flow Rate FiO2 08/31/18 23:17 93 08/31/18 23:12 100 08/31/18 21:25 98.6 18 126/92 Room Air Impression: Primary Impression: Depression Additional Impressions: Suicidal ideation Alcohol intoxication Condition: Condition Unchanged Disposition: XFER TO [facility] Referrals: BERHANE LOONEY (PCP) Problem Qualifiers NARCISA HAYWOOD DO Aug 31, 2018 22:46
[2018-08-31] MEDS ORDERED: THIAMINE HCL(*) 200 MG/2 ML IN 100 MG, FOLIC ACID(*) 50 MG/10 ML INJ 1 MG, MULTIVITAMIN... IV ONE (23:10)
== END 2018-09-01 00:10 ==
LOC: ER 21:21
DX: F32.9 Major depressive disorder, single episode, unspecified (principal); R45.851 Suicidal ideations; F10.129 Alcohol abuse with intoxication, unspecified; Y90.8 Blood alcohol level of 240 mg/100 ml or more
CPT/HCPCS: 36415; 80305; 80320; 80329; 81001; 81025; 83735; 84443; 85025; 96365; 99285; J3411; J7030; 82040; 82247; 82310; 82374; 82435; 82565; 82947; 84075; 84132; 84155; 84295; 84450; 84460; 84520

== ENCOUNTER 2018-08-31 23:08 | Inpatient (IN) | payer OTHER ==
[~2018-08-31] VITALS: Ht 165.1 cm; Wt 72.6 kg
[~2018-08-31 23:08] MED LIST changes: +VENL25TA3 PO
[2018-08-31] MEDS ORDERED: MAG HYD/AL HYD/SIMETH 30ML UDC PO PRN (23:20)
[2018-09-01 00:20] VITALS: BP 126/88
[2018-09-01] MEDS: DIAZEPAM 10 MG TAB PO PRN ×3 (00:26→20:35)
[2018-09-01 04:50] VITALS: BP 115/75
[2018-09-01 07:45] VITALS: BP 116/68
[2018-09-01] MEDS: FOLIC ACID 1 MG TAB PO SCH (08:06)
[2018-09-01] MEDS: THIAMINE HCL 100 MG TAB PO SCH (08:06)
[2018-09-01] MEDS: MULTIVITAMINS TAB PO SCH (08:06)
[2018-09-01] MEDS: NICOTINE POLACRILEX 2 MG GUM PO PRN ×3 (08:35→18:58)
[2018-09-01] MEDS ORDERED: DIAZEPAM 10 MG TAB PO ONE (08:35)
[2018-09-01] MEDS: VENLAFAXINE XR 75 MG CAPCR PO SCH (08:54)
[2018-09-01] MEDS: INSULIN GLARGINE 100 U/ML 3 ML PEN SUBQ SCH ×2 (08:58→20:35)
[2018-09-01] MEDS: INSULIN HUM LISPRO 100 UN/ML 3 ML VIAL SUBQ PRN ×3 (08:58→20:36)
[2018-09-01 12:45] VITALS: BP 124/70
[2018-09-01 15:45] VITALS: BP 123/79
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
[2018-09-02] VITALS: BP 133/92
[2018-09-02] MEDS: traZODone HCL 50 MG TAB PO PRN ×2 (00:03→21:38)
[2018-09-02 06:00] VITALS: BP 112/71
[2018-09-02] MEDS: THIAMINE HCL 100 MG TAB PO SCH (08:18)
[2018-09-02] MEDS: VENLAFAXINE XR 75 MG CAPCR PO SCH (08:18)
[2018-09-02] MEDS: FOLIC ACID 1 MG TAB PO SCH (08:18)
[2018-09-02] MEDS: MULTIVITAMINS TAB PO SCH (08:18)
[2018-09-02] MEDS: INSULIN GLARGINE 100 U/ML 3 ML PEN SUBQ SCH ×2 (08:19→21:33)
[2018-09-02 10:45] VITALS: BP 108/82
[2018-09-02] MEDS: INSULIN HUM LISPRO 100 UN/ML 3 ML VIAL SUBQ PRN ×3 (12:17→21:32)
[2018-09-02] MEDS: NICOTINE POLACRILEX 2 MG GUM PO PRN (12:56)
--- NOTE | 2018-09-02 13:35 | BHS Progress Note ---
[facility] - Subjective Progress Notes Subjective Pt seen in conference room with team. Pt continues to report depressed mood at 6/10, guilt and shame at 8/10. she denies SI. Still being monitored on CIWA, has had a total of 70 mg valium so far. Pt is trying to decide between [place] and [facility] for rehab admission after detox. Pt is taking an active role in her treatment, attending groups and [place] activities. Suicidal Ideation: None Homicidal Ideation: None [facility] - Objective Physical Exam Vital Signs Vital Signs 09/02/18 10:45 Temp 97.9 Pulse 72 Resp 16 B/P (MAP) 108/82 (91) Pulse Ox 95 O2 Delivery Room Air Muscle Strength and Tone: WNL Gait and Station: Steady [facility] Medications Reviewed: Side Effects, Benefits of Medication, Risks Allergies Reviewed: Yes Mental Status Exam General Appearance: Casual, Good Eye Contact, Cooperative, Polite, Good Interaction, Tearful Speech: Clear, Normal Rate, Normal Rhythm, Normal Volume, Normal Tone, Delayed Mood: Dysthmic/Depressed Affect: Sad, Tearful Thought Process: Organized, Logical, Goal Directed Thought Content: No Suicidal Ideation, No Homicidal Ideation, No Delusions, No Auditory Halllucinations, No Visual Hallucinations, No Thought Broadcasting, No Ideas of Reference, No Obsessions, No Compulsions, No Other Sensorium: Clear Cognition: Alert & Oriented-Person, Alert & Oriented-Place, Alert & Oriented- Time, Owtlo-Ukgzzncg-Omjzjfoya Memory: Immediate, Recent, Remote Intelligence: Average Insight Judgment: Fair Result Diagram: 09/01/18 0627 [facility] Assessment and Plan Iapz-qe-Abcu Encounter Date: Sep 02, 2018 Tnzz-wy-Ezec Encounter Time: 08:30 [facility] Plan: Necessary Precautions, Individual/Group Therapy, Admin/Titrate Meds, Educate Patient Tobacco Medications: Started Multpiple Antipsychotics Used: No Problems: (1) Alcohol use disorder, severe, dependence (2) Alcohol withdrawal (3) Persistent depressive disorder (4) Trauma and stressor-related disorder DUSTY ALTAMIRANO MD Sep 02, 2018 13:35
[2018-09-02 15:45] VITALS: BP 108/70
[2018-09-02] MEDS ORDERED: NICOTINE CARTRIDGE 1 EA PO PRN (16:05)
[2018-09-02] MEDS: NICOTINE INH SYSTEM 10 MG/INH INH PRN ×2 (16:15→21:36)
[2018-09-03 06:05] VITALS: BP 92/63
[2018-09-03] MEDS: THIAMINE HCL 100 MG TAB PO SCH (08:05)
[2018-09-03] MEDS: FOLIC ACID 1 MG TAB PO SCH (08:05)
[2018-09-03] MEDS: VENLAFAXINE XR 75 MG CAPCR PO SCH (08:06)
[2018-09-03] MEDS: INSULIN GLARGINE 100 U/ML 3 ML PEN SUBQ SCH ×2 (08:06→20:42)
[2018-09-03] MEDS: MULTIVITAMINS TAB PO SCH (08:06)
[2018-09-03] MEDS: INSULIN HUM LISPRO 100 UN/ML 3 ML VIAL SUBQ PRN ×4 (08:07→20:42)
--- NOTE | 2018-09-03 11:00 | NUR ---
LATE ENTRY: AT LUNCHTIME ON [id number] JAMES'S BLOOD SUGAR WAS 319. JAMES SAID SHE WOULD ADD TWO UNITS TO THE CALLED FOR DOSE TO COVER THE TYPE OF FOOD SHE ORDERED. 10 UNITS WERE GIVEN. AT DINNER TIME HER BLOOD SUGAR WAS AGAIN 319. I SPOKE WITH DR. ALTAMIRANO ABOUT HOW HIGH HER BLOOD SUGAR WAS RUNNING. DR. ALTAMIRANO WAS OKAY WITH ADDING THE TWO UNITS OF COVERAGE, BUT DECIDED WE SHOULD SWITCH JAMES TO SLIDING SCALE #3. THE SLIDING SCALE WAS CHANGED TO #3.
[2018-09-03 11:50] VITALS: BP 110/68
--- NOTE | 2018-09-03 14:35 | BHS Progress Note ---
[facility] - Subjective Progress Notes Subjective Pt seen in treatment team with her mother and her outpatient therapist present. Pt still reporting depressed mood at 510, guilt and shame at 8-9/10. Pt is done with detox, last valium was night before last. We are working on rehab, made calls to two different facilities in [place], [place] and [facility]. Pt is tolerating medication well without side effects. Her sugars have been high, and we offered to have Medicine come and see her but she declined, saying she knows what she needs to do. She did request that we move to sliding scale number 3, and she will monitor her carbs carefully. We are hoping for possible transfer tomorrow to [facility] in [facility]-- mother will transport. Suicidal Ideation: None Homicidal Ideation: None [facility] - Objective Physical Exam Vital Signs Vital Signs 09/03/18 11:50 Temp 98.7 Pulse 73 Resp 16 B/P (MAP) 110/68 (82) Pulse Ox 94 O2 Delivery Room Air Muscle Strength and Tone: WNL Gait and Station: Steady [facility] Medications Reviewed: Side Effects, Benefits of Medication, Risks Allergies Reviewed: Yes Mental Status Exam General Appearance: Casual, Well Groomed, Good Eye Contact, Cooperative, Polite , Good Interaction, Tearful Speech: Clear, Spontaneous, Normal Rate, Normal Rhythm, Normal Volume, Normal Tone Mood: Dysthmic/Depressed Affect: Sad, Tearful Thought Process: Organized, Logical, Goal Directed Thought Content: No Suicidal Ideation, No Homicidal Ideation, No Delusions, No Auditory Halllucinations, No Visual Hallucinations, No Thought Broadcasting, No Ideas of Reference, No Obsessions, No Compulsions, No Other Sensorium: Clear Cognition: Alert & Oriented-Person, Alert & Oriented-Place, Alert & Oriented- Time, Trwzc-Dpwmxvri-Tnxhfojcz Memory: Immediate, Recent, Remote Intelligence: Average Insight Judgment: Fair Result Diagram: 09/01/18 0627 [facility] Assessment and Plan Cmkw-zx-Ilzw Encounter Date: Sep 03, 2018 Xmbd-tz-Dkph Encounter Time: 10:00 [facility] Plan: Necessary Precautions, Individual/Group Therapy, Admin/Titrate Meds, Educate Patient Tobacco Medications: Started Multpiple Antipsychotics Used: No Problems: (1) Alcohol use disorder, severe, dependence (2) Alcohol withdrawal (3) Persistent depressive disorder (4) Trauma and stressor-related disorder DUSTY ALTAMIRANO MD Sep 03, 2018 14:35
[2018-09-03] MEDS: NICOTINE INH SYSTEM 10 MG/INH INH PRN (16:08)
[2018-09-03] MEDS ORDERED: LEVO1IUD3 IY (20:38)
[2018-09-03] MEDS ORDERED: VENL75TA98 PO (20:38)
[2018-09-03] MEDS: traZODone HCL 50 MG TAB PO PRN (21:28)
[2018-09-03 23:58] VITALS: BP 134/91
[2018-09-04 06:35] VITALS: BP_SYST 68
[2018-09-04] MEDS: THIAMINE HCL 100 MG TAB PO SCH (08:20)
[2018-09-04] MEDS: VENLAFAXINE XR 75 MG CAPCR PO SCH (08:21)
[2018-09-04] MEDS: MULTIVITAMINS TAB PO SCH (08:21)
[2018-09-04] MEDS: FOLIC ACID 1 MG TAB PO SCH (08:22)
[2018-09-04] MEDS: INSULIN GLARGINE 100 U/ML 3 ML PEN SUBQ SCH (08:23)
[2018-09-04] MEDS: INSULIN HUM LISPRO 100 UN/ML 3 ML VIAL SUBQ PRN (08:25)
[2018-09-04 09:05] VITALS: BP 102/62
[2018-09-04] MEDS ORDERED: INSU100I30 SQ (09:25)
[2018-09-04] MEDS ORDERED: MULT-1379 PO (09:27)
[2018-09-04] MEDS ORDERED: [UNRECOGNIZED DRUG - OTHER] (09:28)
[2018-09-04] MEDS ORDERED: TRAZ50TA34 PO (09:29)
[2018-09-04] MEDS ORDERED: MIRENA (09:30)
--- NOTE | 2018-09-04 09:46 | BHS Progress Note ---
[facility] - Subjective Progress Notes Subjective "I'm thankful for the opportunity to go to rehab." Denies depression, anxiety, anger Sleep sufficient, denies s/s lashawn or psychosis Denies urge to drink Alcohol withdrawal complete Suicidal Ideation: None Homicidal Ideation: None [facility] - Objective Physical Exam Vital Signs Vital Signs Date Time Temp Pulse Resp B/P (MAP) Pulse Ox O2 Delivery O2 Flow Rate FiO2 09/04/18 06:35 96.4 68/ 93 Room Air 09/03/18 23:58 80 09/03/18 11:50 16 Deferred Medications (Trade) Dose Ordered Sig/[place] Route PRN Reason Start Time Stop Time Status Last Admin Dose Admin Al Hydrox/Mg Hydrox/Simethicone (Maalox(*) 30 ml Udcup (Or Equiv)) 30 ml BID PRN PO HEARTBURN 08/31/18 23:20 09/30/18 23:19 09/01/18 08:55 Diazepam (Valium(*) 10 Mg Tab (Or Equiv)) 10 mg ONCE ONCE PO 09/01/18 08:35 09/01/18 08:44 DC 09/01/18 08:55 Folic Acid (Folic Acid (*) 1 Mg Tab) 1 mg QDAY PO 09/01/18 09:00 10/01/18 08:59 09/04/18 08:22 Insulin Glargine (Lantus 100 Unit/ ml Pen) 15 unit BID SUBQ 09/01/18 09:00 10/01/18 08:59 09/04/18 08:23 Insulin Human Lispro (HumaLOG 100 UN/ ML 3 ML VIAL (OR EQUIV)) 3-15 UNITS SS PRN SUBQ SLIDING SCALE INSULIN 09/03/18 10:50 10/03/18 10:49 09/04/18 08:25 Miscellaneous Information (Nicotrol Cartridge) 1 each PRN PRN PO NICOTINE REPLACEMENT 09/02/18 16:05 10/02/18 16:04 09/02/18 16:15 Multivitamins (Thera-M Enhanced Tab (Or Equiv)) 1 each QDAY PO 09/01/18 09:00 10/01/18 08:59 09/04/18 08:21 Nicotine (Nicotrol Inhaler 10 Mg/Inh (Or Equiv)) 10 mg Q1H PRN INH NICOTINE REPLACEMENT 09/02/18 16:05 10/02/18 16:04 09/03/18 16:08 Nicotine Polacrilex (Nicorette 2 Mg Gum (Or Equiv)) 2 mg Q1-2H PRN PO NICOTINE REPLACEMENT 09/01/18 01:05 09/02/18 16:02 DC 09/02/18 12:56 Thiamine HCl (Vitamin B-1(*) 100 Mg Tab (Or Equiv)) 100 mg QDAY PO 09/01/18 09:00 10/01/18 08:59 09/04/18 08:20 Trazodone HCl (Desyrel 50 Mg Tab (Or Equiv)) 50 mg QHS PRN PO INSOMNIA 08/31/18 23:20 09/30/18 23:19 09/03/18 21:28 Venlafaxine HCl (Effexor-Xr 75 Mg Capcr (Or Equiv)) 225 mg QDAY PO 09/01/18 09:00 10/01/18 08:59 09/04/18 08:21 Muscle Strength and Tone: WNL Gait and Station: Steady [facility] Medications Reviewed: Side Effects, Benefits of Medication, Risks Allergies Reviewed: Yes Mental Status Exam General Appearance: Casual, Well Groomed, Good Eye Contact, Cooperative, Polite, Good Interaction, Tearful Speech: Clear, Spontaneous, Normal Rate, Normal Rhythm, Normal Volume, Normal Tone Mood: Dysthmic/Depressed Affect: Sad, Tearful Thought Process: Organized, Logical, Goal Directed Thought Content: No Suicidal Ideation, No Homicidal Ideation, No Delusions, No Auditory Halllucinations, No Visual Hallucinations, No Thought Broadcasting, No Ideas of Reference, No Obsessions, No Compulsions, No Other Sensorium: Clear Cognition: Alert & Oriented-Person, Alert & Oriented-Place, Alert & Oriented- Time, Suljc-Hvkngorm-Xukfvaooy Memory: Immediate, Recent, Remote Intelligence: Average Insight Judgment: Fair Result Diagram: 09/01/18 0627 [facility] Assessment and Plan Pulx-zx-Fwus Encounter Date: Sep 04, 2018 Lrgm-mc-Zrij Encounter Time: 09:42 [facility] Plan: Necessary Precautions, Individual/Group Therapy, Admin/Titrate Meds, Educate Patient Tobacco Medications: Started Multpiple Antipsychotics Used: No Problems: (1) Persistent depressive disorder Status: Chronic (2) Alcohol use disorder, severe, dependence Status: Chronic (3) Trauma and stressor-related disorder Status: Chronic Condition Discharge to home Discharge to rehab facility Follow up care through rehab facility To abstain from etoh/illicit substances Return to ER worsening s/s, SI/MYRNA CAMACHO NP Sep 04, 2018 09:46
--- NOTE | 2018-09-04 14:47 | DISCHARGE SUMMARY ---
DATE OF ADMISSION: August 31, 2018 DATE OF DISCHARGE: September 04, 2018 ATTENDING PROVIDER FELIZ Fung FINAL DIAGNOSIS PER DIAGNOSTIC AND STATISTICAL MANUAL OF MENTAL DISORDERS, FIFTH EDITION 1. Alcohol use disorder, severe. 2. Alcohol withdrawal, considered complete. 3. Persistent depressive disorder. 4. Trauma- and stress-related disorder. REASON FOR ADMISSION/BRIEF HISTORY This patient is a 37-year-old female who was admitted on a voluntary basis for alcohol abuse, depression, and suicidal ideation. On the day of admission, the patient drank nine beers and a half pint of liquor and then called her mother, who brought her to the Emergency Room where she signed in voluntarily. Patient is also an insulin-dependent diabetic, and she had an admission for DKA in May 2018. She stated that she felt that admission was caused because of her drinking. She had become increasingly depressed and having some passive suicidal thoughts, saying, " sounds better than this." She was also dog sitting at someone's house and had a gun, and she became very anxious, fearing that she would pick it up and end her life by shooting herself. She also felt the same way about knives. She began drinking daily with blackouts approximately four times per week. She is currently scheduled to attend a substance abuse rehab facility where she has been accepted for admission in [place], [place], at [facility]. Her mother has arrived to transport her to friends, who will then transport her to the substance abuse program. Patient does admit on day of discharge that if she had alcohol, she would have the urge to drink. She is denying depression, anxiety, or anger. She reports she is sleeping well. She has been stabilized on her Effexor and trazodone, which she is encouraged to continue with use and continue with medical management of her diabetes upon discharge. Patient is denying any thoughts of hurting herself or others and accepting of the transfer to the substance abuse rehab to assist with her sobriety. PHYSICAL EXAMINATION Please see emergency room notes for physical exam. VITAL SIGNS: At time of admission include temperature of 97.9, pulse of 72, respiratory rate 16, blood pressure 108/82, pulse oximetry 95% on room air. Vital signs at time of discharge include temperature of 96.4, pulse oximetry 93% on room air, pulse of 80, blood pressure 134/91. LABORATORY DATA CBC within normal limits with MCV elevated, 101.4. Chemistry panel upon admission with sodium of 129, chloride 95, carbon dioxide 17, random glucose 289, magnesium 1.6. Thyroid stimulating hormone is 3.63. Urine screen within normal limits with small amount of leukocyte esterase, many squamous epithelial cells. Toxicology upon admission including salicylate and acetaminophen levels less than 10, serum alcohol level 256. Urine screen negative for opiates, barbiturates, tricyclics, phencyclidine, amphetamines, benzodiazepine, cocaine, and cannabinoids. Random whole blood glucose at time of discharge is 233. MENTAL STATUS EXAMINATION GENERAL APPEARANCE, BEHAVIOR, AND ATTITUDE: Patient is calm, cooperative, with no periods of tearfulness. No bizarre mannerisms or tics. No psychomotor agitation or retardation at time of discharge interview. SPEECH: Regular rate, rhythm, volume, tone. MOOD: Euthymic. AFFECT: Minimally constricted, mood congruent. THOUGHT PROCESSES: Logical, goal directed. No loose associations or flight of ideas. THOUGHT CONTENT: Free of auditory or visual hallucinations, ideas of reference, thought broadcasting, delusions, obsessions, compulsions. Patient denies suicidal or homicidal ideation. SENSORIUM: Clear. COGNITION: Alert and oriented to person, place, time, and situation. MEMORY: Immediate, recent, and remote intact. INTELLIGENCE: Average based on interview. INSIGHT AND JUDGMENT: Considered improved and intact in the absence of alcohol. CONSULTATIONS None. TREATMENT Patient participated in individual and group therapy for her substance abuse while on the unit. She initiated on CIWA protocol, and alcohol withdrawal was considered complete at time of discharge. CONDITION OF PATIENT ON DISCHARGE Stable. She is considered a minimal risk to herself or others. Patient is discharged to home in the care of her mother to be transported to her residential substance abuse rehab in [facility] where she has been accepted for admission for alcohol residential programming. She is agreeable and appreciative of this opportunity to assist with her sobriety. She is to follow up with her medical provider for diabetic management. DISCHARGE MEDICATIONS 1. Effexor XR 225 mg one p.o. q.a.m. 2. Lantus 100 units/mL, 15 units subcutaneously twice daily. 3. Multivitamin one p.o. daily. 4. Trazodone 50 mg at bedtime p.r.n. insomnia. 5. Humalog 3 to 15 units subcutaneously sliding scale according to blood sugars. 6. Nicotrol cartridge and inhaler for nicotine replacement. PLAN Patient is to take medications only as prescribed. She is to abstain from alcohol and all illicit substances. The crisis line number is given and encouraged use if symptoms worsen. Patient is to return to the Emergency Room for worsening symptoms, suicidal or homicidal ideation. Patient is competent and agreeable with the above discharge plan. Discharge instructions were reviewed with her and her mother prior to discharge. SHAVON
== END 2018-09-04 09:55 | DRG 897 ==
LOC: BHS 23:08
PROVIDERS: ADMIT Psychiatry & Neurology Psychiatry; ATTEND Psychiatry & Neurology Psychiatry
DX: F10.230 Alcohol dependence with withdrawal, uncomplicated (principal); R45.851 Suicidal ideations; F34.1 Dysthymic disorder; E11.65 Type 2 diabetes mellitus with hyperglycemia; H81.09 Meniere's disease, unspecified ear; Y90.8 Blood alcohol level of 240 mg/100 ml or more; Z81.1 Family history of alcohol abuse and dependence; Z81.8 Family history of other mental and behavioral disorders; Z62.811 Personal history of psychological abuse in childhood; Z79.4 Long term (current) use of insulin
CPT/HCPCS: 36415; 36416; 82040; 82247; 82310; 82374; 82435; 82565; 82947; 82948; 83735; 84075; 84132; 84155; 84295; 84450; 84460; 84520; J1815